=== PATIENT | male | born 1955 | race African-American/Black ===

== ENCOUNTER 2019-02-03 23:46 | Inpatient (IN) | payer MEDICAID ==
[~2019-02-03] VITALS: Ht 175.3 cm; Wt 76.8 kg
[~2019-02-03 23:46] MED LIST: FERROUS SULFAT325 M2 ORAL; FOLIC ACID0.8 MG ORAL; KEPPRA500 MG ORAL; LACTULOSE10 GM/153 PO; LEVETIRACETAM1000 MG ORAL; LEVOFLOXACIN500 MG ORAL; MULTIVITAMINS1 EAC8 ORAL; PROTONIX20 MG ORAL; THIAMINE HCL500 MG PO; [UNRECOGNIZED DRUG - OTHER] PO
--- NOTE | 2019-02-03 23:51 | NUR ---
ED Nurse Note: pt bib from long-term due to seizure and possible fall. skin intact. pt is aox4, states may have hit his head
--- NOTE | 2019-02-03 23:52 | NUR ---
ED Nurse Note: SZ PRECAUTION INTIATED, BED SIDE RAILS PADDED. BED A LOWEST LEVEL, LIGHTS DIMMED.
[2019-02-03 23:55] VITALS: BP 161/86
[2019-02-04] VITALS (8 sets, daily range): BP systolic 131–163; BP diastolic 69–93
[2019-02-04] MEDS ORDERED: LORazepam Inj 2mg/ml 1ml IM ONE
--- NOTE | 2019-02-04 00:10 | NUR ---
ED Nurse Note: blood specimen sent to lab
[2019-02-04] MEDS ORDERED: FERROUS SULFAT325 MG ORAL (00:14)
[2019-02-04] MEDS ORDERED: CAPOTEN PO (00:14)
--- NOTE | 2019-02-04 00:17 | Emergency Room Report ---
History of Present Illness General Chief Complaint: Multiple Trauma/Fall Source: Medical Record, EMS Present Illness HPI Patient was brought in by paramedics for reports of seizure activity this morning Patient was noted to have had a seizure activity also reported to have possible fall to the ground There was no reports of vomiting or diarrhea Patient was recently here with similar seizure activity Patient appears to have focal-type seizures Previous imaging had shown some chronic appearing abnormalities Patient presents from nursing facility History of present illness is limited as the patient is a poor historian Allergies: Coded Allergies: No Known Allergies (Unverified , 01/31/19) Patient History Limited by: medical condition Past Medical History: see triage record Pertinent Family History: unable to obtain Reviewed Nursing Documentation: PMH: Agreed; PSxH: Agreed Nursing Documentation-PMH Past Medical History: No History, Except For Hx Hypertension: Yes - HTN Hx Cancer: No Hx Seizures: Yes - SZ Review of Systems All Other Systems: limited - Other than the ones mentioned in the history of present illness all others are reviewed however they do stay limited due to the patient's mental status Physical Exam Vital Signs Date Time Temp Pulse Resp B/P (MAP) Pulse Ox O2 Delivery O2 Flow Rate FiO2 02/03/19 23:46 98.6 66 18 165/79 (107) 97 Room Air Sp02 EP Interpretation: reviewed, normal General Appearance: well appearing, no apparent distress Head: normocephalic, atraumatic Eyes: bilateral eye PERRL, bilateral eye EOMI ENT: normal pharynx Neck: supple Respiratory: lungs clear, no respiratory distress, no retraction Cardiovascular #1: regular rate, rhythm Gastrointestinal: non tender, soft Musculoskeletal: normal inspection Neurologic: alert, responsive Skin: normal color, no rash Lymphatic: no adenopathy Medical Decision Making Diagnostic Impression: Primary Impression: Intractable seizure disorder ER Course Multiple differentials and consideration Patient did have an abnormal CT imaging previously therefore another one was repeated Patient's blood work remains at baseline levels CT head does not show any change from previous This time patient remains improved given the recent disposition and return patient was placed into observation for further evaluation Labs Test 02/03/19 23:59 02/04/19 00:50 White Blood Count 8.3 K/UL (4.8-10.8) Red Blood Count 5.13 M/UL (4.70-6.10) Hemoglobin 13.8 G/DL (14.2-18.0) Hematocrit 41.6 % (42.0-52.0) Mean Corpuscular Volume 81 FL (80-99) Mean Corpuscular Hemoglobin 27.0 PG (27.0-31.0) Mean Corpuscular Hemoglobin Concent 33.3 G/DL (32.0-36.0) Red Cell Distribution Width 16.8 % (11.6-14.8) Platelet Count 171 K/UL (150-450) Mean Platelet Volume 8.1 FL (6.5-10.1) Neutrophils (%) (Auto) 54.6 % (45.0-75.0) Lymphocytes (%) (Auto) 33.0 % (20.0-45.0) Monocytes (%) (Auto) 8.7 % (1.0-10.0) Eosinophils (%) (Auto) 2.9 % (0.0-3.0) Basophils (%) (Auto) 0.9 % (0.0-2.0) Sodium Level 139 MMOL/L (136-145) Potassium Level 3.6 MMOL/L (3.5-5.1) Chloride Level 102 MMOL/L (98-107) Carbon Dioxide Level 24 MMOL/L (21-32) Anion Gap 14 mmol/L (5-15) Blood Urea Nitrogen 12 mg/dL (7-18) Creatinine 1.1 MG/DL (0.55-1.30) Estimat Glomerular Filtration Rate > 60 mL/min (>60) Glucose Level 105 MG/DL (74-106) Calcium Level 9.4 MG/DL (8.5-10.1) Rhythm Strip Diag. Results EP Interpretation: yes Rate: 77 Rhythm: NSR, no PVC's, no ectopy CT/MRI/US Diagnostic Results CT/MRI/US Diagnostic Results : Impression CT head no change from previous Last Vital Signs Date Time Temp Pulse Resp B/P (MAP) Pulse Ox O2 Delivery O2 Flow Rate FiO2 02/03/19 23:55 74 18 Room Air 02/03/19 23:55 98.6 161/86 98 Status: improved Disposition: PLACE IN OBSERVATION Condition: Improved Wendy Feliz DO February 04, 2019 00:17
[2019-02-04 00:23] LABS: BASOPHILS % (AUTO) 0.9 % (0.0-2.0); EOSINOPHILS % (AUTO) 2.9 % (0.0-3.0); HEMATOCRIT 41.6 % (42.0-52.0); HEMOGLOBIN 13.8 G/DL (14.2-18.0); MEAN CORPUSCULAR VOLUME 81 FL (80-99); MONOCYTES % (AUTO) 8.7 % (1.0-10.0); NEUTROPHILS % (AUTO) 54.6 % (45.0-75.0); PLATELET COUNT 171 K/UL (150-450); RED BLOOD COUNT 5.13 M/UL (4.70-6.10); RED CELL DISTRIBUTION WIDTH 16.8 % (11.6-14.8); WHITE BLOOD COUNT 8.3 K/UL (4.8-10.8)
[2019-02-04 01:24] LABS: ANION GAP 14 mmol/L (5-15); BLOOD UREA NITROGEN 12 mg/dL (7-18); CALCIUM 9.4 MG/DL (8.5-10.1); CARBON DIOXIDE 24 MMOL/L (21-32); CHLORIDE 102 MMOL/L (98-107); CREATININE 1.1 MG/DL (0.55-1.30); POTASSIUM 3.6 MMOL/L (3.5-5.1); SODIUM 139 MMOL/L (136-145)
--- NOTE | 2019-02-04 01:30 | NUR ---
ED Nurse Note: ERCN SPOKE TO TELECN AND WAS INFORMED THAT BED IS NOT READY YET. CALL BACK IN 15 MIN
--- NOTE | 2019-02-04 01:51 | NUR ---
ED Nurse Note: TELEPHONE REPORT GIVEN TO KEATON ALVAREZ
--- NOTE | 2019-02-04 01:53 | NUR ---
ED Nurse Note: PER TELE, CRN PLEASE HOLD PT UNTIL STRIKER BED AVAILABLE, "WE WILL CALL BACK WHEN READY".
--- NOTE | 2019-02-04 02:15 | NUR ---
ED Nurse Note: PT WENT TO TELE ON MANAGER LIGHTING WITH KEATON ALEGRIA AND ROZINA EMT PT IS AOX3, ON ROOM AIR, SKIN INTACT, SHOWING NO SIGNS OF DISTRESS. PT DENIES PAIN AT THE MOMENT. PT VSS. PT BELONGINGS WERE BROUGHT UP WITH Arsh
--- NOTE | 2019-02-04 02:35 | NUR ---
NURSE NOTES: Received report from TRINIDAD Lemons RN. Patient was transferred to Telemetry unit from ER via draw sheet method, 2 staff member assist without incident. No signs of acute distress noted; denies pain at this time. AOx3-4; able to make needs known. Checked IV site; patent and flushed. No erythema, bleeding, or infiltration noted. Patient put on Tele box; sinus rhythm on the monitor (60s). Belongings list checked with patient and transferring RN. Bed at lowest position, brakes on, siderails up x3. Siderails padded following seizure precautions. Suction at bedside. Call light within reach. Will continue to monitor.
[2019-02-04] MEDS ORDERED: LACTULOSE20 GM/301 ORAL (02:42)
[2019-02-04] MEDS ORDERED: PANTOPRAZOLE SO40 MG ORAL (02:42)
[2019-02-04] MEDS ORDERED: VITAMIN B-1100 MG ORAL (02:42)
[2019-02-04] MEDS ORDERED: ASCORBIC ACID500 MG ORAL (02:42)
[2019-02-04] MEDS ORDERED: COLACE100 MG ORAL (02:42)
[2019-02-04] MEDS ORDERED: FOLIC ACID1 MG ORAL (02:42)
[2019-02-04] MEDS ORDERED: LEVETIRACETAM500 MG ORAL (02:42)
--- NOTE | 2019-02-04 02:49 | NUR ---
NURSE NOTES: Called Dr. Lambert for admission orders. Received new orders including continuing all senior living medications. Noted and carried out.
--- NOTE | 2019-02-04 04:49 | NUR ---
NURSE NOTES: Patient is asleep lying semi-cottrell's; resting comfortably. No signs of acute distress or pain noted at this time.
--- NOTE | 2019-02-04 07:12 | NUR ---
HAND-OFF: Report given to KEATON Bellamy. Patient is asleep lying semi-cottrell's; resting comfortably. In stable condition.
--- NOTE | 2019-02-04 07:17 | NUR ---
NURSE NOTES: I received the patient sleeping in bed. Siderails padded and suction set-up. Patient awakes to name. Patient does not display any signs of distress or SOB. Bed in the lowest position and call light within reach. I will continue to monitor the patient and implement care.
--- NOTE | 2019-02-04 08:18 | NUR ---
CASE MANAGEMENT:REVIEW 63 YR OLD MALE BIBA FROM [facility] CC: FALL D/T SEIZURE SI: INTRACTABLE SEIZURES 98.6 66 18 165/79 97% ON RA H/H-13.8/41.6 IS: ATIVAN IM CT HEAD : TO TELEMETRY PLAN: SEIZURE PRECAUTION URINE CULTURE
[2019-02-04] MEDS: Docusate 100mg cap ORAL SCH ×2 (08:48→17:42)
[2019-02-04] MEDS: Phenytoin Susp 100mg/4ml NG SCH ×2 (08:48→20:02)
[2019-02-04] MEDS: Thiamine 100mg tab ORAL SCH (08:48)
[2019-02-04] MEDS: Levofloxacin 500mg tab ORAL SCH (08:48)
[2019-02-04] MEDS: Multivitamin w/Minerals tab ORAL SCH (08:49)
[2019-02-04] MEDS: Ascorbic Acid 500mg tab ORAL SCH (08:49)
[2019-02-04] MEDS: Heparin 5000 units/ml inj SUBQ SCH ×2 (08:49→20:03)
[2019-02-04] MEDS ORDERED: Lactulose 20gm/30ml UDC ORAL PRN (09:00)
--- NOTE | 2019-02-04 09:30 | NUR ---
NURSE NOTES: The color television console monitor witnessed a patient having a seizure on the monitor. I went to the patient's room, but did not witness an active seizure. The patient was not responsive. The blood pressure was elevated and O2 saturation was within normal range. Patient's blood sugar was normal. A rapid response was called. Dr. Lambert gave an order for ativan and ABGs. Patient's blood pressure came down, 138/68, HR 75 and O2 saturation was 98%. ABGs were drawn. Patient sleeping in bed. I will continue to monitor the patient and implement care.
--- NOTE | 2019-02-04 09:33 | Diagnostic Imaging Report ---
Indication: Head trauma. Subdural collections. Follow-up Technique: Contiguous 5 mm thick transaxial imaging of the head obtained in a Siemens Sensation [address] scanner. Soft tissue and bone windows generated. Automatic Exposure Control was utilized. Total Dose length Product (DLP): 1418.[address] Dose Index Volume (CTDIvol): 70.38 mGy Comparison: 01/31/2019 Findings: Small bifrontal subdural collections again noted without change. Moderate atrophy of the brain demonstrated with prominence of the sulci ventricles and basal cisterns. Bifrontal encephalomalacia again noted. There is no acute bleed, mass effect or edema identified. There is no midline shift. The ventricles are prominent but stable. Osseous structures are unremarkable. IMPRESSION: No significant change from the prior exam performed 4 days earlier. Bifrontal subdural collections likely late subacute hematomas. [facility] has communicated the preliminary results to the Emergency Department. Their findings are largely concordant with this report. The CT scanner at [facility] is accredited by the [employer] and the scans are performed using dose optimization techniques as appropriate to a performed exam including Automatic Exposure control.
[2019-02-04] MEDS ORDERED: LORazepam Inj 2mg/ml 1ml IV PRN (09:45)
--- NOTE | 2019-02-04 10:45 | History and Physical Report ---
DATE OF ADMISSION: 02/04/2019 CHIEF COMPLAINT: Seizures. HISTORY OF PRESENT ILLNESS: The patient is a 63-year-old male. He has a history of traumatic brain injury and chronic subdural hematoma, was recently hospitalized with complaints of seizures. At that time, his Keppra was increased. He had no further seizures, was discharged back to [facility]. Apparently there, he had another seizure. According to the patient, he has been compliant with medications. He otherwise without complaints. Denies any fever or chills. No chest pain. No shortness of breath. No headaches. PAST MEDICAL HISTORY: As above. He has a history of hypertension. PAST SURGICAL HISTORY: None. CURRENT MEDICATIONS: Reconciled and reviewed. ALLERGIES: None. FAMILY HISTORY: Unknown. SOCIAL HISTORY: There is no known history of tobacco, ethanol, or drugs. REVIEW OF SYSTEMS: Negative except for seizures. PHYSICAL EXAMINATION: VITAL SIGNS: Temperature 98 degrees, pulse 58, respirations 17, and blood pressure 140/69. GENERAL: The patient is well developed, no apparent distress. HEART: Regular rate and rhythm. LUNGS: Clear. ABDOMEN: Soft. EXTREMITIES: Without clubbing, cyanosis, or edema. LABORATORY DATA: White count 8, hemoglobin 13. Sodium 139, potassium 3.6. ASSESSMENT: This is a pleasant male, admitted with complaints of seizures, they have been refractory to Keppra. We will add Dilantin as the patient states he has tolerated Dilantin well in the past. He is unclear why it was discontinued. If no seizures over the next 24 hours, he can likely go back to [facility]. We will repeat urinalysis. Jason Lambert M.D. DR: DAPHNE JOB#: [id number] CC:
--- NOTE | 2019-02-04 11:10 | NUR ---
*-* NO INSURANCE INFORMATION IN THE BAR TO SEND CLINICALS OR REVIEWS *-*
[2019-02-04 14:18] LABS: APPEARANCE,URINE CLEAR; BILIRUBIN, URINE NEGATIVE (NEGATIVE); GLUCOSE, URINE (UA) NEGATIVE (NEGATIVE); KETONES,URINE NEGATIVE (NEGATIVE); LEUKOCYTE ESTERASE ,URINE 1+ (NEGATIVE); NITRITE,URINE NEGATIVE (NEGATIVE); PH,URINE 5 (4.5-8.0); PROTEIN,URINE NEGATIVE (NEGATIVE); UROBILINOGEN,URINE 1 MG/DL (0.0-1.0)
[2019-02-04 14:23] LABS: COLOR,URINE YELLOW
[2019-02-04] MEDS: Captopril 25mg tab ORAL SCH (15:01)
--- NOTE | 2019-02-04 16:00 | Cardiology Report ---
APPROVED REPORT EKG Measurement Heart [id number] Normal sinus rhythm Minimal voltage criteria for LVH, may be normal variant Nonspecific T wave abnormality Abnormal ECG
[2019-02-04 17:02] LABS: BASOPHILS % (AUTO) 0.6 % (0.0-2.0); EOSINOPHILS % (AUTO) 3.2 % (0.0-3.0); HEMATOCRIT 34.4 % (42.0-52.0); HEMOGLOBIN 11.8 G/DL (14.2-18.0); MEAN CORPUSCULAR VOLUME 79 FL (80-99); NEUTROPHILS % (AUTO) 62.2 % (45.0-75.0); PLATELET COUNT 138 K/UL (150-450); RED BLOOD COUNT 4.34 M/UL (4.70-6.10); RED CELL DISTRIBUTION WIDTH 16.2 % (11.6-14.8)
[2019-02-04 17:47] LABS: ALANINE AMINOTRANSFERASE 17 U/L (12-78); ALBUMIN 3.2 G/DL (3.4-5.0); ALBUMIN/GLOBULIN RATIO 0.8 (1.0-2.7); ALKALINE PHOSPHATASE 145 U/L (46-116); ANION GAP 11 mmol/L (5-15); ASPARTATE AMINO TRANSFERASE 22 U/L (15-37); BILIRUBIN,TOTAL 0.6 MG/DL (0.2-1.0); BLOOD UREA NITROGEN 11 mg/dL (7-18); CALCIUM 8.5 MG/DL (8.5-10.1); CARBON DIOXIDE 24 MMOL/L (21-32); CHLORIDE 102 MMOL/L (98-107); CREATININE 0.9 MG/DL (0.55-1.30); POTASSIUM 3.7 MMOL/L (3.5-5.1); SODIUM 137 MMOL/L (136-145)
--- NOTE | 2019-02-04 19:14 | NUR ---
NURSE NOTES: Patient was assisted to the bathroom by two RNs. Patient wanted privacy in the bathroom because he wanted to have bowel movement. I checked on the patient and he was sitting on the toilet and he was fine. I told the patient to use the call light when he was finished going to the bathroom, and he verbalized understanding. When RN checked on patient a second time, patient was found sitting on the floor. Patient denied hitting his head or any part of the body, no bruises or scrapes noted. Vital signs taken and were stable. Patient was alert and able to respond to questions. Charge nurse, housekeeping room inspector and Dr. Lambert notified. There were no new ordered received from Dr. Lambert.
--- NOTE | 2019-02-04 19:15 | NUR ---
NURSE NOTES: Received pt. in bed awake- A/O x's3- able to make needs known- pt. aware to ask for assistance if ambulating, but aware not as for now as he has unsteady gait, pt. has cardiac monitoring on, bed in lowest position and call light within easy reach, bed alarm on and side rails up x's3- safety brakes engaged, pt. appears to be sating well on room air- no distress noted, condom cath intact and draining to gravity, all need attended to and comfort measures provided, Rt. AC 22G SL- IV intact and patent, no seizure activity noted- upon assessment, safety measure continued, will continue with plan of care.
--- NOTE | 2019-02-04 19:47 | NUR ---
HAND-OFF: Report given to KEATON Carter.
[2019-02-05] VITALS: BP 148/77
[2019-02-05 04:00] VITALS: BP 144/83
--- NOTE | 2019-02-05 07:10 | NUR ---
HAND-OFF: Report given to Eom RN, pt. remains stable and no signs of distress noted.
--- NOTE | 2019-02-05 07:10 | NUR ---
NURSE NOTES: Received report from KEATON Carter. Patient is in stable condition. No acute distress/SOB noted. Patient denies any pain/discomfort at this time. No seizure activity during night. Will continue plan of care.
[2019-02-05 08:00] VITALS: BP 122/67
[2019-02-05] MEDS: Captopril 25mg tab ORAL SCH (08:41)
[2019-02-05] MEDS: Phenytoin Susp 100mg/4ml ORAL SCH ×2 (08:41→21:12)
[2019-02-05] MEDS: Ascorbic Acid 500mg tab ORAL SCH (08:41)
[2019-02-05] MEDS: Levofloxacin 500mg tab ORAL SCH (08:41)
[2019-02-05] MEDS: Thiamine 100mg tab ORAL SCH (08:41)
[2019-02-05] MEDS: Docusate 100mg cap ORAL SCH ×2 (08:41→17:07)
[2019-02-05] MEDS: Multivitamin w/Minerals tab ORAL SCH (08:45)
--- NOTE | 2019-02-05 08:47 | General Progress Note ---
Assessment/Plan Problem List: (1) Intractable seizure disorder ICD Codes: G40.919 - Epilepsy, unspecified, intractable, without status epilepticus SNOMED: 333325199 Status: stable Assessment/Plan: monitor for sz cont sz rx Subjective ROS Limited/Unobtainable: No Constitutional: Reports: malaise, weakness HEENT: Reports: no symptoms Cardiovascular: Reports: no symptoms Respiratory: Reports: no symptoms Gastrointestinal/Abdominal: Reports: no symptoms Genitourinary: Reports: no symptoms Neurologic/Psychiatric: Reports: pre-existing deficit, seizure Endocrine: Reports: no symptoms Hematologic/Lymphatic: Reports: no symptoms Allergies: Coded Allergies: No Known Allergies (Unverified , 01/31/19) All Systems: reviewed and negative except above Subjective had 1 sz yesterday. none since. given ativan. started on dilantin. no complaints Objective Last 24 Hour Vital Signs Date Time Temp Pulse Resp B/P (MAP) Pulse Ox O2 Delivery O2 Flow Rate FiO2 02/05/19 08:41 122/67 02/05/19 04:00 70 02/05/19 04:00 98.2 62 18 144/83 (103) 100 02/05/19 00:00 60 02/05/19 00:00 98.4 64 20 148/77 (100) 97 02/04/19 20:00 75 02/04/19 20:00 Room Air 02/04/19 20:00 98.1 71 18 139/79 (99) 97 02/04/19 19:02 98.9 64 18 131/79 (96) 98 02/04/19 16:00 98.9 64 18 141/79 (99) 99 02/04/19 15:18 64 02/04/19 15:01 134/70 02/04/19 14:59 66 134/70 (91) 02/04/19 12:00 98.8 72 18 138/76 (96) 98 02/04/19 11:35 69 02/04/19 09:00 Room Air Intake and Output 02/04/19 02/05/19 19:00 07:00 Intake Total 480 ml Output Total 450 ml 400 ml Balance 30 ml -400 ml Intake Oral 480 ml Output Urine Total 450 ml 400 ml # Voids 1 Laboratory Tests 02/04/19 09:33: Arterial Blood pH 7.347L, Arterial Blood Partial Pressure CO2 33.2L, Arterial Blood Partial Pressure O2 120.0H, Arterial Blood HCO3 17.8*L, Arterial Blood Oxygen Saturation 98.2, Arterial Blood Base Excess -6.8L, Odell Test Positive 02/04/19 14:09: Urine Color Yellow, Urine Appearance Clear, Urine pH 5, Urine Specific [place] 1.015, Urine Protein Negative, Urine Glucose (UA) Negative, Urine Ketones Negative, Urine Blood Negative, Urine Nitrite Negative, Urine Bilirubin Negative , Urine Urobilinogen 1H, Urine Leukocyte Esterase 1+H, Urine RBC 0, Urine WBC 0- 2, Urine Squamous Epithelial Cells Occasional, Urine Bacteria Occasional 02/04/19 16:30: White Blood Count 6.0, Red Blood Count 4.34L, Hemoglobin 11.8L, Hematocrit 34.4L , Mean Corpuscular Volume 79L, Mean Corpuscular Hemoglobin 27.1, Mean Corpuscular Hemoglobin Concent 34.2, Red Cell Distribution Width 16.2H, Platelet Count 138L, Mean Platelet Volume 7.9, Neutrophils (%) (Auto) 62.2, Lymphocytes (%) (Auto) 26.0, Monocytes (%) (Auto) 8.0, Eosinophils (%) (Auto) 3.2H, Basophils (%) (Auto) 0.6, Sodium Level 137, Potassium Level 3.7, Chloride Level 102, Carbon Dioxide Level 24, Anion Gap 11, Blood Urea Nitrogen 11, Creatinine 0.9, Estimat Glomerular Filtration Rate > 60, Glucose Level 93, Lactic Acid Level 0.70, Calcium Level 8.5, Total Bilirubin 0.6, Aspartate Amino Transf (AST/SGOT) 22, Alanine Aminotransferase (ALT/SGPT) 17, Alkaline Phosphatase 145H, Total Protein 7.3, Albumin 3.2L, Globulin 4.1, Albumin/ Globulin Ratio 0.8L Height (Feet): 5 Height (Inches): 9.00 Weight (Pounds): 169 General Appearance: WD/WN, alert Neck: supple Cardiovascular: regular rhythm Respiratory/Chest: chest wall non-tender, lungs clear Abdomen: normal bowel sounds, non tender, soft Edema: no edema noted Arm (L), no edema noted Arm (R), no edema noted Leg (L), no edema noted Leg (R), no edema noted Pedal (L), no edema noted Pedal (R), no edema noted Generalized Jason Lambert MD February 05, 2019 08:47
[2019-02-05] MEDS: Heparin 5000 units/ml inj SUBQ SCH ×2 (09:00→21:13)
--- NOTE | 2019-02-05 09:52 | NUR ---
*-* INSURANCE *-* ALL CLINICALS AND REVIEWS HAVE BEEN FAXED TO: [facility]:DARYN P:[phone] F:[phone] REF# [id number]
[2019-02-05 12:00] VITALS: BP 119/71
--- NOTE | 2019-02-05 15:45 | NUR ---
CASE MANAGEMENT:REVIEW 02/05/19 SI: INTRACTABLE SEIZURE DISORDER 98.2 73 18 119/71 98% ON RA IS: DILANTIN PO Q12 CAPTOPRIL PO QD KEPPRA PO BID LEVAQUIN PO QD HEPARIN SQ Q12 : TELEMETRY STATUS PLAN: HAD ONE SEIZURE YESTERDAY ~ GIVEN ATIVAN ~ STARTED DILANTIN
[2019-02-05 16:00] VITALS: BP 127/77
--- NOTE | 2019-02-05 19:19 | NUR ---
HAND-OFF: Report given to KEATON Berman. Patient is in stable condition. Endorsed plan of care.
--- NOTE | 2019-02-05 19:19 | NUR ---
NURSE NOTES: Received patient from Jeffrey PUGH. Patient is awake and oriented x3. He is on room air, tolerating well, showing no signs of distress. Patient has a condom catheter that is patent and draining. IV site is Right AC 20g that is patent and asymptomatic. Bed is locked, placed in lowest position, side rails up x3, all needs attended to. Will continue to monitor.
[2019-02-05 20:00] VITALS: BP 137/65
[2019-02-06] VITALS: BP 130/66
[2019-02-06 04:00] VITALS: BP 144/74
--- NOTE | 2019-02-06 07:05 | NUR ---
NURSE NOTES: Received report from KEATON Berman. Patient is in stable condition. No acute distress/SOB noted. Patient denies any pain/discomfort at this time. Will continue plan of care.
--- NOTE | 2019-02-06 07:14 | NUR ---
HAND-OFF: Report given to Jeffrey PUGH. Patient in stable condition.
[2019-02-06 08:00] VITALS: BP 142/75
[2019-02-06] MEDS: Phenytoin Susp 100mg/4ml ORAL SCH ×2 (08:17→21:00)
[2019-02-06] MEDS: Ascorbic Acid 500mg tab ORAL SCH (08:17)
[2019-02-06] MEDS: Docusate 100mg cap ORAL SCH ×2 (08:18→17:19)
[2019-02-06] MEDS: Captopril 25mg tab ORAL SCH (08:18)
[2019-02-06] MEDS: Multivitamin w/Minerals tab ORAL SCH (08:18)
[2019-02-06] MEDS: Levofloxacin 500mg tab ORAL SCH (08:18)
[2019-02-06] MEDS: Thiamine 100mg tab ORAL SCH (08:18)
[2019-02-06] MEDS: Heparin 5000 units/ml inj SUBQ SCH ×2 (08:22→21:00)
[2019-02-06 12:00] VITALS: BP 127/66
--- NOTE | 2019-02-06 13:03 | NUR ---
*-* INSURANCE *-* ALL CLINICALS AND REVIEWS HAVE BEEN FAXED TO: [facility]:DARYN P:[phone] F:[phone] REF# [id number]
--- NOTE | 2019-02-06 15:33 | NUR ---
CASE MANAGEMENT:REVIEW 02/06/19 SI: INTRACTABLE SEIZURE 98.1 69 20 127/66 99% ON RA DILANTIN-7.2 IS: DILANTIN 200MG PO Q12 CAPTOPRIL PO QD KEPPRA 1500MG PO BID LEVAQUIN PO QD : TELEMETRY STATUS DCP: FROM [facility]
[2019-02-06 16:00] VITALS: BP 132/59
[2019-02-06] MEDS ORDERED: PHENYTOIN100 MG/4 M ORAL (16:54)
--- NOTE | 2019-02-06 17:02 | NUR ---
*-* DISCHARGE PLANNING *-* PATIENT HAS BEEN REFERRED BACK TO: [facility] P:[phone] F:[phone]
--- NOTE | 2019-02-06 17:15 | NUR ---
NURSE NOTES: ANAI was asking if can order PT. Talked with Dr. Lambert. He said he is stable, DC to SNF without PT.
--- NOTE | 2019-02-06 17:42 | NUR ---
NURSE NOTES: Discharge report given to KEATON Lund @ [facility].
--- NOTE | 2019-02-06 18:44 | NUR ---
NURSE NOTES: Discharge instruction given and patient verbalized understanding. Inventory check done. Removed child monitor. No acute distress/SOB noted. Patient denies any pain/discomfort at this time. Awaiting for transportation.
--- NOTE | 2019-02-06 19:11 | NUR ---
HAND-OFF: Report given to KEATON Crum. Patient is in stable condition. Endorsed plan of care.
--- NOTE | 2019-02-06 19:20 | NUR ---
NURSE NOTES: Report received from KEATON Murphy. Observed pt lying on the bed, denies any pain at this time. SR with cardiac specialist. On room air with no signs of sob. IV on R AC, intact and patient. Awaiting for transportation. Bed in the lowest position. Side rails up x2. Call light within reach. Will continue to monitor.
[2019-02-06 20:00] VITALS: BP 130/65
--- NOTE | 2019-02-06 21:30 | NUR ---
NURSE NOTES: Transportation arrived. Pt appears calm and comfortable. VS WNL. No distress noted at this time. founder and president out. Belonging sent with pt.
--- NOTE | 2019-02-07 00:30 | Discharge Summary ---
DATE OF ADMISSION: 02/04/2019 DATE OF DISCHARGE: 02/06/2019 ADMISSION DIAGNOSES: 1. Seizures. 2. History of chronic subdural hematoma. 3. History of alcohol abuse. DISCHARGE DIAGNOSES: 1. Seizures. 2. History of chronic subdural hematoma. 3. History of alcohol abuse. HOSPITAL COURSE: The patient is a 63-year-old male, well known to me, admitted with complaints of seizures. He was recently hospitalized with seizures. At that time, his seizure medications were increased. He had [facility] He presented to the emergency room. He was continued on seizure medications. He was also started on Dilantin. He did have 1 seizure. On discharge , he was improved and stable on Dilantin and Keppra dual therapy. He was [facility] in [facility] condition. DISCHARGE MEDICATIONS: Please see discharge medication list for discharge medications. DIET: Regular diet. ACTIVITIES: Ad-juan. Jason Lambert M.D. DR: FARSHAD JOB#: [id number] CC:
== END 2019-02-06 21:30 | DRG 53 ==
LOC: EDBD 23:46 → EDUNIT# 23:46 → EMR 23:59 → EDBEDREQ 02-04 01:08 → 2E 02-04 01:10 → EDBEDREQ 02-04 01:25 → 2E 02-04 02:12 → OBSVTOIN 02-04 10:58 → 2E 02-05 14:25
DX: G40.919 Epilepsy, unspecified, intractable, without status epilepticus (principal); I62.03 Nontraumatic chronic subdural hemorrhage; Z91.81 History of falling; Z87.820 Personal history of traumatic brain injury; I10 Essential (primary) hypertension; F10.21 Alcohol dependence, in remission
CPT/HCPCS: 36415; 36600; 70450; 80048; 80053; 80185; 80299; 81003; 82803; 82962; 83605; 85025; 87081; 87086; 93005; 96372; 99284